=== PATIENT | female | born 1955 | race American Indian/Alaskan Native ===

== ENCOUNTER 2017-07-23 02:54 | Emergency (ER) | payer BC ==
[2017-07-23 03:01] VITALS: BMI 37.8
--- NOTE | 2017-07-23 03:39 | ED PDOC ---
Arrival/HPI - General Time Seen by Provider: 07/23/17 02:57 Historian: Patient - History of Present Illness Narrative History of Present Illness (Text): 07/23/17 03:39 62 year old female, whose past medical history includes hypertension, presents to the Emergency department complaining of substernal chest pain associated with nausea that began tonight. Patient reports she failed her stress test 3 years ago so she went to have a cardiac cath which showed clean vessels. She's been doing well until tonight. She had pasta with some olive oil and bread with butter then in a couple hours began developing these symptoms. Patient states she went to sleep and reported the pain did not go away so she called 911 to come in for evaluation. Patient's chest pain is no longer here, but reports a pressure sensation in the epigastric area. Patient denies any fevers, chills, shortness of breath, abdominal pain, vomiting, diarrhea, back pain, neck pain, urinary symptoms, headache, dizziness, or any other complaint. Symptom Onset: Gradual Symptom Course: Improving Quality: Pressure Activities at Onset: Light Context: Home Past Medical History - Provider Review Nursing Documentation Reviewed: Yes Family/Social History - Physician Review Nursing Documentation Reviewed: Yes Family/Social History: No Known Family HX Allergies/Home Meds Allergies/Adverse Reactions: Allergies aspirin Allergy (Verified 07/23/17 02:59) RASH cinnamon Allergy (Verified 07/23/17 02:59) RASH Home Medications: Home Meds Medication Instructions Recorded Confirmed Bisoprolol [Zebeta] 5 mg PO DAILY 07/23/17 07/23/17 Bisoprolol/HCTZ [Ziac 10-6.25 mg] 1 tab PO DAILY 07/23/17 07/23/17 Esomeprazole Magnesium [Nexium] 40 mg PO DAILY 07/23/17 07/23/17 Ezetimibe [Zetia] 10 mg PO DAILY 07/23/17 07/23/17 Folic Acid [Folic Acid] 1 mg PO DAILY 07/23/17 07/23/17 Levothyroxine [Synthroid] 100 mcg PO DAILY 07/23/17 07/23/17 Methotrexate [Methotrexate] 8 tab PO MON 07/23/17 07/23/17 Montelukast Sodium [Singulair] 10 mg PO DAILY 07/23/17 07/23/17 Montelukast [Singulair] 10 mg PO DAILY 07/23/17 07/23/17 Nabumetone [Relafen] 500 mg PO BID PRN 07/23/17 07/23/17 Nifedipine [Nifedipine ER] 60 mg PO DAILY 07/23/17 07/23/17 Tiotropium [Spiriva] 18 mcg INH DAILY 07/23/17 07/23/17 Review of Systems - Physician Review All systems were reviewed & negative as marked: Yes - Review of Systems Constitutional: absent: Fevers, Other (Chills) Respiratory: absent: SOB Cardiovascular: Chest Pain (substernal) Gastrointestinal: Nausea, Other (epigastric pressure). absent: Abdominal Pain, Diarrhea, Vomiting Genitourinary Female: absent: Dysuria, Frequency, Hematuria Musculoskeletal: absent: Back Pain, Neck Pain Neurological: absent: Headache, Dizziness Physical Exam Vital Signs Reviewed: Yes Vital Signs Temp Pulse Resp BP Pulse Ox 07/23/17 03:49 98.0 F 63 16 115/57 L 94 L Appearance: Positive for: Well-Appearing, Non-Toxic, Comfortable Pain Distress: None Mental Status: Positive for: Alert and Oriented X 3 - Systems Exam Head: Present: Atraumatic, Normocephalic Pupils: Present: PERRL Extroacular Muscles: Present: EOMI Conjunctiva: Present: Normal Mouth: Present: Moist Mucous Membranes Neck: Present: Normal Range of Motion Respiratory/Chest: Present: Clear to Auscultation, Good Air Exchange. No: Respiratory Distress, Accessory Muscle Use, Tender to Palpation Cardiovascular: Present: Regular Rate and Rhythm, Normal S1, S2. No: Murmurs Abdomen: No: Tenderness, Distention, Peritoneal Signs Back: Present: Normal Inspection Upper Extremity: Present: Normal Inspection. No: Cyanosis, Edema Lower Extremity: Present: Normal Inspection. No: Edema Neurological: Present: GCS=15, CN II-XII Intact, Speech Normal Skin: Present: Warm, Dry, Normal Color. No: Rashes Psychiatric: Present: Alert, Oriented x 3, Normal Insight, Normal Concentration Medical Decision Making ED Course and Treatment: 07/23/17 03:52 Impression: 62 year old female presents complaining of substernal chest associated with nausea that resolved, but is now complaining of pressure to the epigastric area. Plan: -- Labs -- EKG -- Chest X-ray -- Abdomen complete US -- Reassess and disposition Progress Notes: EKG shows NSR at [address]PM with non-specific ST/T changes. Interpreted by me. 07/23/17 04:15 CXR Impression: As read by me, elevated left hemidiaphragm. Present in Chest X- ray done in 04/15/13. - Lab Interpretations Lab Results: 07/23/17 03:27 07/23/17 04:30 Lab Results 07/23/17 04:30: Sodium 145, Potassium 3.7, Chloride 107, Carbon Dioxide 26, Anion Gap 16, BUN 16, Creatinine 0.7, Est GFR ( Amer) > 60, Est GFR (Non- Af Amer) > 60, Random Glucose 104, Calcium 9.1, Total Bilirubin 0.3, AST 37 H, ALT 37, Alkaline Phosphatase 60, Lactate Dehydrogenase 790 H, Total Creatine Kinase 409 H, CK-MB (CK-2) 3.3, CK-MB (CK-2) % Cancelled, Troponin I < 0.01, NT- Pro-B Natriuret Pep 89.0, Total Protein 7.6, Albumin 4.0, Globulin 3.6, Albumin/ Globulin Ratio 1.1 07/23/17 03:27: PT 11.5, INR 1.01 07/23/17 03:27: WBC 7.0, RBC 3.82, Hgb 11.9 L, Hct 34.9 L, MCV 91.4, MCH 31.2, MCHC 34.1, RDW 15.0 H, Plt Count 308, MPV 10.6, Gran % 54.2, Lymph % (Auto) 33.1 , Mathews % (Auto) 9.4 H, Eos % (Auto) 3.0, Baso % (Auto) 0.3, Gran # 3.82, Lymph # (Auto) 2.3, Mathews # (Auto) 0.7 H, Eos # (Auto) 0.2, Baso # (Auto) 0.02 I have reviewed the lab results: Yes - RAD Interpretation Radiology Orders: 07/23/17 03:03 CHEST PORTABLE [RAD] Stat 07/23/17 03:29 ABDOMEN COMPLETE [US] Stat - EKG Interpretation Interpreted by ED Physician: Yes Type: 12 lead EKG - Scribe Statement The provider has reviewed the documentation as recorded by the Scribe Bernardino Amie Provider Jenifer Attestation: All medical record entries made by the Jenifer were at my direction and personally dictated by me. I have reviewed the chart and agree that the record accurately reflects my personal performance of the history, physical exam, medical decision making, and the department course for this patient. I have also personally directed, reviewed, and agree with the discharge instructions and disposition. Disposition/Present on Arrival - Present on Arrival Any Indicators Present on Arrival: No History of DVT/PE: No History of Uncontrolled Diabetes: No Urinary Catheter: No History of Decub. Ulcer: No - Disposition Have Diagnosis and Disposition been Completed?: Yes Diagnosis: Chest pain, atypical Disposition Time: 06:11 Patient Plan: Discharge Condition: GOOD Discharge Instructions (ExitCare): Chest Pain (ED) Additional Instructions: Mrs Lugo- All of your testing was normal including the ultrasound of the gallbladder. Return to us if any problems. Follow up with your regular doctor. Best- Dr. Jose Cantu
[2017-07-23 03:46] LABS: BASO # 0.02 K/mm3 (0.0-2.0); BASO % 0.3 % (0.0-3.0); EOS # 0.2 (0.0-0.7); GRAN # 3.82 (1.4-6.5); GRAN % 54.2 % (50.0-68.0); HEMOGLOBIN 11.9 g/dL (12.0-16.0); LYMPH # 2.3 (1.2-3.4); LYMPH % 33.1 % (22.0-35.0); MEAN CELL VOLUME 91.4 fl (80.0-105.0); MEAN CORPUSCULAR HEMOGLOBIN 31.2 pg (25.0-35.0); MEAN CORPUSCULAR HGB CONC 34.1 g/dl (31.0-37.0); MEAN PLATELET VOLUME 10.6 fl (7.0-11.0); MONO # 0.7 (0.1-0.6); MONO % 9.4 % (1.0-6.0); RBC 3.82 10^6/uL (3.5-6.1)
[2017-07-23 03:52] VITALS: TEMP 98
[2017-07-23 04:00] LABS: INR 1.01 (0.93-1.08); PROTHROMBIN TIME 11.5 SECONDS (9.4-12.5)
[2017-07-23 05:13] LABS: BLOOD UREA NITROGEN 16 mg/dL (7-21); GFR AFRICAN-AMERICAN > 60; GFR NON-AFRICAN AMERICAN > 60
[2017-07-23 05:14] LABS: ALB/GLOB RATIO 1.1 (1.1-1.8); ALT/SGPT 37 U/L (7-56); AST/SGOT 37 U/L (14-36); CALCIUM 9.1 mg/dL (8.4-10.5)
[2017-07-23 05:15] LABS: CK-MB 3.3 ng/mL (0.0-3.6); TROPONIN I < 0.01 ng/mL
[2017-07-23 06:21] VITALS: BP 115/57; RESP 18; O2SAT 99
[2017-07-23 06:22] VITALS: PULSE 81
--- NOTE | 2017-07-23 09:53 | RAD ---
HISTORY: Chest Pain COMPARISON: 04/15/2013 FINDINGS: LUNGS: Linear subsegmental atelectasis at right base. PLEURA: Elevated right hemidiaphragm. Nonspecific. No pleural effusion or pneumothorax. CARDIOVASCULAR: Normal. OSSEOUS STRUCTURES: No significant abnormalities. VISUALIZED UPPER ABDOMEN: Normal. OTHER FINDINGS: None. IMPRESSION: Elevated right hemidiaphragm. No acute infiltrate.
--- NOTE | 2017-07-23 10:42 | US ---
HISTORY: Biliary COlic? COMPARISON: None. TECHNIQUE: Sonographic evaluation of the abdomen. FINDINGS: LIVER: Measures 21.2 cm. Normal echogenicity of the liver parenchyma. No mass. No intrahepatic bile duct dilatation. GALLBLADDER: Unremarkable. No gallstones. COMMON BILE DUCT: Measures 6 mm. No stones. No dilatation. PANCREAS: Unremarkable as visualized. No mass. No ductal dilatation. RIGHT KIDNEY: Measures 11.2cm. Normal echogenicity. No calculus, mass, or hydronephrosis. LEFT KIDNEY: Measures cm. 10.5 SPLEEN: Normal in size and contour. No mass. AORTA: No aneurysmal dilatation. IVC: Unremarkable. OTHER FINDINGS: None. IMPRESSION: Hepatomegaly. No evidence of biliary obstruction. No evidence of cholelithiasis. Preliminary interpretation of this examination was reported by [employer] at 6:09 a.m. on 07/23/2017. There is concurrence of this report with the preliminary interpretation.
--- NOTE | 2017-07-23 13:58 | CARD ---
APPROVED REPORT EKG Measurement Heart [id number] <Conclusion> Normal sinus rhythm Nonspecific T wave abnormality Abnormal ECG
== END 2017-07-23 06:21 | disposition home or self-care (01) ==
LOC: ED 02:54
DX: R07.89 Other chest pain (principal); I10 Essential (primary) hypertension